=== PATIENT | male | born 1945 | race Caucasian/White ===

== ENCOUNTER 2018-12-31 18:29 | Emergency (ER) | payer MEDICARE, OTHER ==
[2018-12-31 18:40] VITALS: TEMP 98
[2018-12-31] MEDS ORDERED: NEOMYCIN-BACITRACIN-POLY OINT 14 GM TUBE TOPICAL STA (18:55)
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
[2018-12-31 19:33] VITALS: RESP 18
[2018-12-31 19:47] VITALS: BP 157/89; PULSE 93
== END 2018-12-31 19:53 | disposition home or self-care (01) ==
LOC: EC 18:29 → EEVIPCON 18:29 → EC 19:53
DX: S61.412A Laceration without foreign body of left hand, initial encounter (principal); I10 Essential (primary) hypertension; Z87.891 Personal history of nicotine dependence; Z79.899 Other long term (current) drug therapy; Z85.828 Personal history of other malignant neoplasm of skin; Z53.20 Procedure and treatment not carried out because of patient's decision for unspecified reasons; W01.0XXA Fall on same level from slipping, tripping and stumbling without subsequent striking against object, initial encounter; Y93.89 Activity, other specified; Y92.009 Unspecified place in unspecified non-institutional (private) residence as the place of occurrence of the external cause
CPT/HCPCS: 99283